=== PATIENT | female | born 1985 | race Two or more races ===

== ENCOUNTER 2020-12-16 06:57 | Day surgery (SDC) | payer OTHER | END 2020-12-16 19:40 | disposition home or self-care (01) | LOC: CIR.AMB 06:57 | PROVIDERS: ATTEND Surgery | DX: C50.211 Malignant neoplasm of upper-inner quadrant of right female breast (principal); D24.2 Benign neoplasm of left breast; Z20.822 Contact with and (suspected) exposure to COVID-19 ==

== ENCOUNTER 2021-04-26 12:07 | Outpatient (CLI) | payer OTHER ==
[2021-04-27] MEDS ORDERED: ACID REDUCER20 M1 PO (16:18)
[2021-04-27] MEDS ORDERED: PEPCID40 MG PO (16:18)
== END 2021-04-26 12:08 | disposition home or self-care (01) ==
LOC: LAB 12:07
PROVIDERS: ATTEND Plastic Surgery
DX: Z01.810 Encounter for preprocedural cardiovascular examination (principal); Z01.812 Encounter for preprocedural laboratory examination; C50.211 Malignant neoplasm of upper-inner quadrant of right female breast

== ENCOUNTER 2021-04-28 06:39 | Day surgery (SDC) | payer OTHER ==
[~2021-04-28 06:39] MED LIST: ACID REDUCER20 M1 PO; PEPCID40 MG PO
== END 2021-04-28 14:50 | disposition home or self-care (01) ==
LOC: CIR.AMB 06:39
PROVIDERS: ATTEND Plastic Surgery
DX: C50.211 Malignant neoplasm of upper-inner quadrant of right female breast (principal); Z90.13 Acquired absence of bilateral breasts and nipples; Z20.822 Contact with and (suspected) exposure to COVID-19
CPT/HCPCS: 19342; C1789